=== PATIENT | female | born 1980 | race Caucasian/White ===

== ENCOUNTER 2021-01-18 14:06 | Outpatient (CLI) | payer OTHER ==
[~2021-01-18] VITALS: Ht 157.5 cm; Wt 98.6 kg
[~2021-01-18 14:06] MED LIST: AMIT50TA PO; CHOL40002 PO; DOCU-131 PO; ESCI20TA8 PO; IBUP-1223 PO; OXYC1TAB14 PO; PREN1TAB60 PO
[2021-01-18 15:13] LABS: MICROSCOPIC NOT IND
[2021-01-18 15:18] VITALS: BP 127/92
[2021-01-18 15:24] LABS: AMPHETAMINE SCREEN, URINE Negative (Negative); BARBITURATE SCREEN, URINE Negative (Negative); BENZODIAZEPINE SCREEN, URINE Negative (Negative); CANNABINOID SCREEN, URINE Negative (Negative); COCAINE SCREEN, URINE Negative (Negative); METHADONE SCREEN, URINE Negative (Negative); OPIATE SCREEN, URINE Negative (Negative); PROTEIN/CREATININE RATIO,URINE 79 (0-200); TOTAL PROTEIN,URINE RANDOM 15 mg/dL (0-12)
[2021-01-18 15:31] LABS: BASOPHILS % (AUTO) 0 % (0-1); EOSINOPHILS % (AUTO) 1 % (1-7); LYMPHOCYTES % (AUTO) 21 % (22-44); MEAN CORPUSCULAR HEMOGLOBIN 31.3 pg (27.0-34.8); MEAN CORPUSCULAR HGB CONC 33.9 g/dL (32.4-35.8); MEAN PLATELET VOLUME 8.7 fL (7.4-10.4); MONOCYTES % (AUTO) 7 % (2-9); NEUTROPHILS % (AUTO) 71 % (42-75); PLATELET COUNT 269 x10^3/uL (130-400); RED BLOOD COUNT 3.97 x10^6/uL (3.82-5.3); RED CELL DISTRIBUTION WIDTH 14.1 % (9.6-15.2)
[2021-01-18 15:36] LABS: ALANINE AMINOTRANSFERASE 16 U/L (12-78); ALBUMIN 2.4 g/dL (3.4-5.0); ANION GAP 7 mmol/L (5-15); CALCIUM 8.5 mg/dL (8.5-10.1); CHLORIDE 107 mmol/L (98-107); CREATININE 0.65 mg/dL (0.55-1.02)
[2021-01-18] MEDS ORDERED: OMEP-110 PO (15:36)
[2021-01-18] MEDS ORDERED: ENOX100S5 SQ (15:38)
[2021-01-18 15:39] LABS: ALKALINE PHOSPHATASE 95 U/L (45-117); BILIRUBIN,TOTAL 0.2 mg/dL (0.2-1.0); TOTAL PROTEIN 6.9 g/dL (6.4-8.2)
[2021-01-18] MEDS ORDERED: ENOXAPARIN 100 MG/ML SQ ONE (16:00)
== END 2021-01-18 16:19 | disposition home or self-care (01) ==
LOC: LDOP 14:06
PROVIDERS: ATTEND Obstetrics & Gynecology
DX: O42.913 Preterm premature rupture of membranes, unspecified as to length of time between rupture and onset of labor, third trimester (principal); O62.9 Abnormality of forces of labor, unspecified; Z3A.34 34 weeks gestation of pregnancy
CPT/HCPCS: 36415; 59025; 80053; 80307; 81003; 82570; 84112; 84156; 84550; 85025; 87086; 96372; J1650

== ENCOUNTER 2021-02-13 18:02 | Outpatient (CLI) | payer OTHER ==
[~2021-02-13 18:02] MED LIST changes: +ENOX100S5 SQ; +OMEP-110 PO; +OXYC1TAB12 PO; -OXYC1TAB14 PO
== END 2021-02-13 19:40 | disposition home or self-care (01) ==
LOC: LDOP 18:02
PROVIDERS: ATTEND Obstetrics & Gynecology
DX: O09.523 Supervision of elderly multigravida, third trimester (principal); O36.8130 Decreased fetal movements, third trimester, not applicable or unspecified; Z3A.38 38 weeks gestation of pregnancy
CPT/HCPCS: 59025

== ENCOUNTER 2021-02-16 12:57 | Outpatient (CLI) | payer OTHER ==
[~2021-02-16] VITALS: Ht 157.5 cm; Wt 100.0 kg
== END 2021-02-16 13:30 | disposition home or self-care (01) ==
LOC: LDOP 12:57
PROVIDERS: ATTEND Obstetrics & Gynecology
DX: O09.523 Supervision of elderly multigravida, third trimester (principal); O36.8130 Decreased fetal movements, third trimester, not applicable or unspecified; Z3A.39 39 weeks gestation of pregnancy
CPT/HCPCS: 59025

== ENCOUNTER 2021-02-17 17:02 | Inpatient (IN) | payer OTHER ==
[~2021-02-17] VITALS: Ht 157.5 cm; Wt 103.6 kg
[2021-02-17] MEDS ORDERED: TERBUTALINE 1 MG/ML, 1ML IVPush PRN (17:30)
[2021-02-17] MEDS ORDERED: VANCOMYCIN PMX 1GM/200ML 200 ML IVPB SCH (17:30)
[2021-02-17] MEDS ORDERED: TERBUTALINE 1 MG/ML, 1ML SQ PRN (17:30)
[2021-02-17] MEDS ORDERED: METOCLOPRAMIDE 5 MG/ML, 2ML IVPush PRN (17:30)
[2021-02-17] MEDS ORDERED: FENTANYL PF 100 MCG/2ML IVPush PRN (17:30)
[2021-02-17] MEDS ORDERED: FENTANYL PF 100 MCG/2ML IV PRN (17:30)
[2021-02-17] MEDS ORDERED: SODIUM CITRATE/CITRIC ACID 30 ML UDC PO PRN (17:30)
[2021-02-17] MEDS ORDERED: ONDANSETRON 2MG/ML, 2ML IVPush PRN (17:30)
[2021-02-17] MEDS: LACTATED RINGERS 1,000 ML IV SCH (17:50)
[2021-02-17 18:04] VITALS: BP 114/70
[2021-02-17 18:23] LABS: BASOPHILS % (AUTO) 0 % (0-1); EOSINOPHILS % (AUTO) 0 % (1-7); LYMPHOCYTES % (AUTO) 23 % (22-44); MEAN CORPUSCULAR HEMOGLOBIN 30.4 pg (27.0-34.8); MEAN CORPUSCULAR HGB CONC 33.2 g/dL (32.4-35.8); MEAN PLATELET VOLUME 9.1 fL (7.4-10.4); MONOCYTES % (AUTO) 6 % (2-9); NEUTROPHILS % (AUTO) 70 % (42-75); PLATELET COUNT 216 x10^3/uL (130-400); RED BLOOD COUNT 3.97 x10^6/uL (3.82-5.3); RED CELL DISTRIBUTION WIDTH 14.4 % (9.6-15.2)
[2021-02-17] MEDS ORDERED: NEWBORN KIT ONE (18:23)
[2021-02-17] MEDS ORDERED: LIDOCAINE 1%, 20ML ONE (18:24)
[2021-02-17] MEDS ORDERED: MISOPROSTOL 200 MCG TABLET ONE (18:24)
[2021-02-17] MEDS ORDERED: VANCOMYCIN 1,000 MG in SODIUM CHLORIDE 0.9% 100 ML IV SCH (18:30)
[2021-02-17] MEDS ORDERED: OXYTOCIN 30U/ 0.9% NaCL 500ML 500 ML IV ONE (18:30)
[2021-02-17] MEDS ORDERED: D5%-LACTATED RINGERS 1,000 ML IV SCH (18:30)
[2021-02-17 19:20] VITALS: BP 125/82
[2021-02-17] MEDS ORDERED: FENTANYL/BUPIV./NS/PF 250 ML EPIDCONT ONE (21:13)
[2021-02-17] MEDS ORDERED: BUPIVACAINE 0.25% ONE (21:13)
[2021-02-17] MEDS ORDERED: LACTATED RINGERS 1,000 ML IV SCH (22:00)
[2021-02-17] MEDS ORDERED: FENTANYL/BUPIV./NS/PF 250 ML EPIDCONT SCH (22:00)
[2021-02-17] MEDS ORDERED: EPHEDRINE 50 MG/ML, 1ML IVPush PRN (22:00)
[2021-02-17] MEDS ORDERED: LACTATED RINGERS 1,000 ML IVBOLUS PRN (22:00)
[2021-02-17] MEDS ORDERED: ACETAMINOPHEN 325 MG TABLET ONE ×2 (23:35)
[2021-02-18] MEDS ORDERED: MISOPROSTOL 200 MCG TABLET PR PRN (01:00)
[2021-02-18] MEDS ORDERED: ACETAMINOPHEN 325 MG TABLET PO PRN ×2 (01:00)
[2021-02-18] MEDS ORDERED: CALCIUM CARBONATE 500 MG TAB.CHEW PO PRN (01:00)
[2021-02-18] MEDS: OXYTOCIN 30U/ 0.9% NaCL 500ML 500 ML IV SCH ×2 (01:00→10:46)
[2021-02-18] MEDS ORDERED: ONDANSETRON 2MG/ML, 2ML IV PRN (01:00)
[2021-02-18] MEDS ORDERED: SIMETHICONE 80 MG CHEW TAB PO PRN (01:00)
[2021-02-18] MEDS ORDERED: OXYTOCIN 30U/ 0.9% NaCL 500ML 500 ML ONE (01:47)
[2021-02-18] MEDS: LACTATED RINGERS 1,000 ML IV SCH ×2 (02:30→10:30)
[2021-02-18 03:30] VITALS: BP 113/76
[2021-02-18] MEDS: IBUPROFEN 600 MG TABLET PO PRN ×2 (03:36→15:25)
[2021-02-18] MEDS: OXYcodone/APAP 5/325MG TABLET PO PRN ×4 (04:53→20:06)
[2021-02-18 08:30] VITALS: BP 113/68
[2021-02-18] MEDS ORDERED: ENOXAPARIN 100 MG/ML SQ SCH (09:00)
[2021-02-18] MEDS: PRENATAL VIT/IRON/FA 1 EACH TABLET PO SCH (09:05)
[2021-02-18] MEDS: DOCUSATE 100 MG CAPSULE PO PRN (09:05)
[2021-02-18] MEDS: ENOXAPARIN 100 MG/ML SQ SCH ×2 (09:09→21:01)
[2021-02-18 10:37] LABS: BASOPHILS % (AUTO) 0 % (0-1); EOSINOPHILS % (AUTO) 1 % (1-7); LYMPHOCYTES % (AUTO) 19 % (22-44); MEAN CORPUSCULAR HEMOGLOBIN 30.3 pg (27.0-34.8); MEAN CORPUSCULAR HGB CONC 33.3 g/dL (32.4-35.8); MEAN PLATELET VOLUME 8.5 fL (7.4-10.4); MONOCYTES % (AUTO) 8 % (2-9); NEUTROPHILS % (AUTO) 72 % (42-75); PLATELET COUNT 199 x10^3/uL (130-400); RED BLOOD COUNT 3.65 x10^6/uL (3.82-5.3); RED CELL DISTRIBUTION WIDTH 14.3 % (9.6-15.2)
[2021-02-18 12:40] VITALS: BP 124/82
[2021-02-18] MEDS ORDERED: RHOGAM FROM BLOOD BANK 1 NOTE EA IM/IV ONE (16:00)
[2021-02-18 20:00] VITALS: BP 115/79
[2021-02-19 00:10] VITALS: BP 109/73
[2021-02-19] MEDS: OXYcodone/APAP 5/325MG TABLET PO PRN ×3 (01:59→18:34)
[2021-02-19] MEDS: IBUPROFEN 600 MG TABLET PO PRN ×4 (01:59→21:09)
[2021-02-19] MEDS ORDERED: OXYC1TAB12 PO (06:29)
[2021-02-19 08:10] VITALS: BP 128/76
[2021-02-19] MEDS: PRENATAL VIT/IRON/FA 1 EACH TABLET PO SCH (09:04)
[2021-02-19] MEDS: DOCUSATE 100 MG CAPSULE PO PRN ×2 (09:05→21:09)
[2021-02-19] MEDS: ENOXAPARIN 100 MG/ML SQ SCH ×2 (09:07→21:10)
[2021-02-19] MEDS: CALCIUM CARBONATE 500 MG TAB.CHEW PO PRN (15:25)
[2021-02-19 20:30] VITALS: BP 111/73
[2021-02-20] MEDS: CALCIUM CARBONATE 500 MG TAB.CHEW PO PRN ×2 (04:04→10:19)
[2021-02-20] MEDS: IBUPROFEN 600 MG TABLET PO PRN ×2 (04:04→10:07)
[2021-02-20] MEDS: OXYcodone/APAP 5/325MG TABLET PO PRN ×2 (04:04→10:07)
[2021-02-20 08:00] VITALS: BP 128/81
[2021-02-20] MEDS: DOCUSATE 100 MG CAPSULE PO PRN (10:07)
[2021-02-20] MEDS: PRENATAL VIT/IRON/FA 1 EACH TABLET PO SCH (10:07)
[2021-02-20] MEDS: ENOXAPARIN 100 MG/ML SQ SCH (10:08)
== END 2021-02-20 11:57 | disposition home or self-care (01) | DRG 807 ==
LOC: LDOP 17:02 → LDIP 17:55 → 2NW 02-18 03:17
PROVIDERS: ADMIT Obstetrics & Gynecology; ATTEND Obstetrics & Gynecology
PROC: 10E0XZZ Delivery of Products of Conception, External Approach (ICD-10-PCS; principal; 2021-02-18)
PROC: 00HU33Z Insertion of Infusion Device into Spinal Canal, Percutaneous Approach (ICD-10-PCS; 2021-02-18)
PROC: 3E0234Z Introduction of Serum, Toxoid and Vaccine into Muscle, Percutaneous Approach (ICD-10-PCS; 2021-02-18)
PROC: 3E0R3BZ Introduction of Anesthetic Agent into Spinal Canal, Percutaneous Approach (ICD-10-PCS; 2021-02-18)
DX: O99.824 Streptococcus B carrier state complicating childbirth (principal); Z37.0 Single live birth; O69.1XX0 Labor and delivery complicated by cord around neck, with compression, not applicable or unspecified; O77.0 Labor and delivery complicated by meconium in amniotic fluid; F32.9 Major depressive disorder, single episode, unspecified; F41.9 Anxiety disorder, unspecified; Z20.822 Contact with and (suspected) exposure to COVID-19; O99.892 Other specified diseases and conditions complicating childbirth; N90.3 Dysplasia of vulva, unspecified; O99.344 Other mental disorders complicating childbirth; F44.81 Dissociative identity disorder; Z88.6 Allergy status to analgesic agent; Z3A.39 39 weeks gestation of pregnancy; Z79.01 Long term (current) use of anticoagulants; Z86.711 Personal history of pulmonary embolism; Z86.718 Personal history of other venous thrombosis and embolism; Z88.0 Allergy status to penicillin; Z91.19 Patient's noncompliance with other medical treatment and regimen
CPT/HCPCS: 36415; J7121; 82962; 85025; 85461; 86592; 86850; 86900; 86923; 87635; G0378; J1650; J2790; J3370; J2590; J3010; J7120